=== PATIENT | female | born 1960 | race Two or more races ===

== ENCOUNTER 2024-01-17 04:00 | Inpatient (IN) | payer MEDICAID, OTHER ==
[~2024-01-17] VITALS: Ht 162.6 cm; Wt 54.5 kg
[2024-01-17 05:11] VITALS: O2SAT 94
[2024-01-17 05:50] LABS: Basophils # (auto) 0 10 ^3/uL (0-0.2); Basophils % (auto) 0.8 % (0.0-2.0); Eosinophils # (auto) 0.1 10 ^3/uL (0-0.8); Eosinophils % (auto) 2.1 % (0.0-7.0); Hematocrit 28.2 % (36.0-46.0); Hemoglobin 9.2 g/dL (12.2-16.2); Lymphocytes % (auto) 20.2 % (10.0-50.0); Mean Corpuscular Hgb Conc. 32.7 g/dL (32.0-36.0); Mean Corpuscular Volume 91.8 fL (80.0-100.0); Monocytes # (auto) 0.8 10 ^3/uL (0-1.3); Monocytes % (auto) 16.5 % (0.0-12.0); Neutrophils # (auto) 2.9 10 ^3/uL (1.6-8.6); Neutrophils % (auto) 60.4 % (37.0-80.0); Red Blood Cells 3.07 10^6/uL (4.0-5.20); Red Cell Distribution Width 17.1 % (11.8-14.3); White Blood Cell 4.8 10^3/uL (4.4-10.8)
[2024-01-17] MEDS: hydrALAZINE HCL 20 MG/ML VL IV ONE (06:09)
[2024-01-17 06:16] LABS: Chloride 95 mmol/L (98-107); Potassium 4.8 mmol/L (3.5-5.1); Sodium 137 mmol/L (136-145)
[2024-01-17 06:17] LABS: Anion Gap 15 (5-15); Calcium 9.1 mg/dL (8.7-10.4); Carbon Dioxide 27 mmol/L (20-30)
[2024-01-17 06:22] LABS: BUN/Creatinine Ratio 8.1 (10.0-20.0); Blood Urea Nitrogen 62 mg/dL (9-23); Glucose 77 mg/dL (74-106)
[2024-01-17] MEDS ORDERED: ACETAMINOPHEN 325 MG TAB PO PRN (06:30)
[2024-01-17] MEDS ORDERED: DOCUSATE SOD 100 MG CAP PO PRN (06:30)
[2024-01-17] MEDS ORDERED: NITROGLYCERIN 0.4 MG SL TAB SL PRN (06:30)
[2024-01-17] MEDS ORDERED: ONDANSETRON HCL 4 MG/2 ML VIAL IV PRN (06:30)
[2024-01-17] MEDS ORDERED: MORPHINE SULFATE INJ 2 MG/ml SYRG IV PRN (06:30)
[2024-01-17 06:45] LABS: Magnesium 1.9 mg/dL (1.6-2.6)
[2024-01-17 07:31] VITALS: O2SAT 93
[2024-01-17] MEDS: B-COMPLEX W/ C & FOLIC ACID(NEPHROVITE TAB) PO SCH (08:47)
[2024-01-17] MEDS: FAMOTIDINE (10MG/ML) 2ML VL IV SCH (08:47)
[2024-01-17] MEDS: ASPirin 81 mg TAB PO SCH (08:47)
[2024-01-17] MEDS: SEVELAMER 800 MG TAB PO SCH (08:47)
[2024-01-17] MEDS: amLODIPine BESYLATE 5 MG TAB PO SCH (08:48)
[2024-01-17] MEDS: HYDROcodone-ACET 5/325MG TAB PO PRN (13:02)
[2024-01-17] MEDS: SODIUM CHLOR 0.9% PF (SALINE LOCK) 10ML VIAL/SYR IV SCH (14:27)
[2024-01-17 19:10] VITALS: PULSE 110; RESP 20; O2SAT 97
[2024-01-17] MEDS: MUPIROCIN 2% OINT 15gm or 22gm TOP STA (20:12)
[2024-01-17] MEDS: ATORVASTATIN 20 MG TAB PO SCH (22:11)
[2024-01-18] MEDS: LORazepam 2MG/ML-1ML VIAL IV ONE (03:04)
[2024-01-18] MEDS: hydrALAZINE HCL 20 MG/ML VL IV PRN (06:13)
[2024-01-18 07:55] VITALS: PULSE 85; RESP 16; O2SAT 99
[2024-01-18 08:31] LABS: Hepatitis B Surface Antibody Positive (Negative)
[2024-01-18 08:33] LABS: Hepatitis B Surface Antigen Negative (Negative)
[2024-01-18] MEDS: CARVEDILOL 3.125 MG TAB PO ONE (10:31)
[2024-01-18] MEDS: CARVEDILOL 3.125 MG TAB PO SCH (10:41)
[2024-01-18 11:18] LABS: Basophils # (auto) 0 10 ^3/uL (0-0.2); Eosinophils # (auto) 0.1 10 ^3/uL (0-0.8); Eosinophils % (auto) 2.7 % (0.0-7.0); Hematocrit 29.1 % (36.0-46.0); Hemoglobin 9.6 g/dL (12.2-16.2); Lymphocytes # (auto) 0.7 10 ^3/uL (0.4-5.4); Lymphocytes % (auto) 16.7 % (10.0-50.0); Mean Corpuscular Hemoglobin 29.8 pg (28.0-32.0); Mean Corpuscular Hgb Conc. 32.9 g/dL (32.0-36.0); Mean Corpuscular Volume 90.6 fL (80.0-100.0); Monocytes # (auto) 0.8 10 ^3/uL (0-1.3); Monocytes % (auto) 19.1 % (0.0-12.0); Neutrophils # (auto) 2.6 10 ^3/uL (1.6-8.6); Neutrophils % (auto) 60.5 % (37.0-80.0); Nucleated Red Blood Cells % 0.2 %; Red Blood Cells 3.21 10^6/uL (4.0-5.20); Red Cell Distribution Width 16.9 % (11.8-14.3); White Blood Cell 4.3 10^3/uL (4.4-10.8)
[2024-01-18 11:26] LABS: Albumin 4.3 g/dL (3.2-4.8); Alkaline Phosphatase 82 U/L (46-116); Anion Gap 9 (5-15); Aspartate Aminotransferase 9 U/L (13-40); BUN/Creatinine Ratio 5.9 (10.0-20.0); Calcium 9.6 mg/dL (8.7-10.4); Carbon Dioxide 31 mmol/L (20-30); Chloride 97 mmol/L (98-107); Glucose 81 mg/dL (74-106); Potassium 4.1 mmol/L (3.5-5.1); Sodium 137 mmol/L (136-145)
[2024-01-18 11:27] LABS: % Iron Saturation 14.4 % (15-50); Bilirubin, Total 0.3 mg/dL (0.2-1.0); Total Protein 8.4 g/dL (5.7-8.2)
[2024-01-18 11:30] LABS: Alanine Aminotransferase < 9 U/L (7-40); Blood Urea Nitrogen 32 mg/dL (9-23)
[2024-01-18] MEDS: NICOTINE 14 MG/24HR TOPICAL PATCH TD ONE (16:58)
[2024-01-18] MEDS: SODIUM CHL 0.9% 1000 ML BAG XX ONE (20:30)
[2024-01-18] MEDS: EPOETIN ALFA-EPBX 10,000 UNIT/1ML VIAL SC ONE (21:22)
[2024-01-18] MEDS: ERGOCALCIFEROL 50,000 UNIT(1.25MG) CAP PO SCH (22:30)
[2024-01-19] MEDS: MORPHINE SULFATE INJ 2 MG/ml SYRG IV ONE (02:35)
[2024-01-19 04:53] LABS: Chloride 98 mmol/L (98-107); Sodium 135 mmol/L (136-145)
[2024-01-19 04:54] LABS: Anion Gap 9 (5-15); Carbon Dioxide 28 mmol/L (20-30)
[2024-01-19 04:55] LABS: Calcium 9.3 mg/dL (8.7-10.4)
[2024-01-19 04:59] LABS: BUN/Creatinine Ratio 6.4 (10.0-20.0); Blood Urea Nitrogen 30 mg/dL (9-23); Glucose 119 mg/dL (74-106)
[2024-01-19 05:07] LABS: Basophils # (auto) 0 10 ^3/uL (0-0.2); Basophils % (auto) 0.9 % (0.0-2.0); Eosinophils # (auto) 0.1 10 ^3/uL (0-0.8); Eosinophils % (auto) 3.4 % (0.0-7.0); Hematocrit 27.4 % (36.0-46.0); Hemoglobin 9.2 g/dL (12.2-16.2); Lymphocytes # (auto) 0.9 10 ^3/uL (0.4-5.4); Lymphocytes % (auto) 24.2 % (10.0-50.0); Mean Corpuscular Hemoglobin 30.3 pg (28.0-32.0); Mean Corpuscular Hgb Conc. 33.5 g/dL (32.0-36.0); Mean Corpuscular Volume 90.4 fL (80.0-100.0); Monocytes # (auto) 0.5 10 ^3/uL (0-1.3); Monocytes % (auto) 13.9 % (0.0-12.0); Neutrophils # (auto) 2.1 10 ^3/uL (1.6-8.6); Neutrophils % (auto) 57.6 % (37.0-80.0); Nucleated Red Blood Cells % 0.1 %; Red Blood Cells 3.03 10^6/uL (4.0-5.20); Red Cell Distribution Width 16.9 % (11.8-14.3); White Blood Cell 3.6 10^3/uL (4.4-10.8)
[2024-01-19] MEDS: SODIUM CHL 0.9% 1000 ML BAG XX ONE (07:00)
[2024-01-19 07:45] VITALS: PULSE 87; RESP 16; O2SAT 100
[2024-01-19] MEDS: NICOTINE 14 MG/24HR TOPICAL PATCH TD SCH (10:25)
[2024-01-19 14:41] VITALS: PULSE 74
[2024-01-19] MEDS: CARVEDILOL 3.125 MG TAB PO ONE (14:43)
[2024-01-19 15:31] VITALS: BP 139/73; PULSE 77; RESP 19; TEMP 98; O2SAT 100
[2024-01-19] MEDS ORDERED: EPOETIN ALFA-EPBX 4,000 UNIT/ML VIAL SC ONE (21:00)
[2024-01-19] MEDS ORDERED: CARVEDILOL 3.125 MG TAB PO SCH (22:00)
== END 2024-01-19 16:03 | disposition home or self-care (01) | DRG 425 ==
LOC: ER 04:00 → TELE 06:29
PROVIDERS: ADMIT Internal Medicine; ATTEND Internal Medicine
PROC: 5A1D70Z Performance of Urinary Filtration, Intermittent, Less than 6 Hours Per Day (ICD-10-PCS; principal; 2024-01-17)
PROC: 5A1D70Z Performance of Urinary Filtration, Intermittent, Less than 6 Hours Per Day (ICD-10-PCS; 2024-01-19)
DX: E87.70 Fluid overload, unspecified (principal); J96.21 Acute and chronic respiratory failure with hypoxia; I12.0 Hypertensive chronic kidney disease with stage 5 chronic kidney disease or end stage renal disease; J90 Pleural effusion, not elsewhere classified; D63.1 Anemia in chronic kidney disease; B19.10 Unspecified viral hepatitis B without hepatic coma; N18.6 End stage renal disease; N25.81 Secondary hyperparathyroidism of renal origin; I16.0 Hypertensive urgency; F17.210 Nicotine dependence, cigarettes, uncomplicated; E78.5 Hyperlipidemia, unspecified; G89.29 Other chronic pain; E55.9 Vitamin D deficiency, unspecified; Z99.2 Dependence on renal dialysis; Z79.899 Other long term (current) drug therapy
CPT/HCPCS: 36415; 71045; 80048; 80053; 82306; 82607; 82728; 83036; 83540; 83550; 83690; 83735; 84443; 85025; 86706; 86803; 86850; 86870; 86900; 86901; 87340; 90935; 93005; 97163; G0378; J3490